=== PATIENT | female | born 1975 | race American Indian/Alaskan Native ===

== ENCOUNTER 2021-02-03 21:44 | Emergency (ER) | payer SELFPAY ==
[2021-02-03 23:42] LABS: Basophils % (Auto) 0.6 % (0.0-1.8); Eosinophils # (Auto) 0.3 K/mm3 (0.0-0.4); Eosinophils % (Auto) 3.2 % (0.0-4.3); Hematocrit 43.6 % (30.3-42.9); Hemoglobin 14.1 gm/dl (10.1-14.3); Lymphocytes # (Auto) 1.2 K/mm3 (1.2-5.4); Lymphocytes % (Auto) 14.5 % (13.4-35.0); Mean Corpuscular HGB Conc 32 % (30-34); Mean Corpuscular Volume 82 fl (79-97); Monocytes # (Auto) 0.5 K/mm3 (0.0-0.8); Monocytes % (Auto) 6.2 % (0.0-7.3); Platelet Count 234 K/mm3 (140-440); Red Blood Count 5.34 M/mm3 (3.65-5.03); Red Cell Distribution Width 12.9 % (13.2-15.2)
[2021-02-03 23:54] LABS: Alanine Aminotransferase 24 units/L (7-56); Blood Urea Nitrogen 6 mg/dL (7-17); Calcium 9.4 mg/dL (8.4-10.2); Hemolysis Index 6
[2021-02-04 00:03] LABS: BUN/Creatinine Ratio 9
[2021-02-04] MEDS ORDERED: SODIUM CHLORIDE 0.9% 1000 ML 1,000 ML IV ONE ×2 (00:11→00:38)
[2021-02-04] MEDS ORDERED: INSULIN REGULAR, HUMAN 100 UNITS/1 ML IV ONE (00:38)
--- NOTE | 2021-02-04 02:22 | Emergency Department Report ---
ED N/V/D HPI - General Chief complaint: Nausea/Vomiting/Diarrhea Stated complaint: UNCONTROLABLE BOWELS Source: patient Mode of arrival: Ambulatory Limitations: No Limitations - History of Present Illness Initial comments: Patient is a 45-year-old -[place] female with no past medical history presents to the ED with complaint of acute onset persistent diarrhea intermitte ntly for the last 1 week, worse in the last 2 days. Patient states that her symptoms are persistent and worse, and that she has had multiple episodes of diarrhea all day. Patient states that no one else at home is had similar symptoms. Patient denies chest pain, shortness of breath, headache, dizziness, syncope, cough, sore throat, abdominal pain, dysuria, urinary frequency and urgency, vaginal bleeding, vaginal discharge, nausea and vomiting, hematochezia or change in vision and headache. MD complaint: diarrhea -: Sudden, week(s) (1) Description of Diarrhea: water Associated Abdominal Pain: No Location: diffuse Radiation: none Severity: moderate Pain Scale: 0 Quality: dull Consistency: intermittent Improves with: none Worsens with: eating Context: possible food poisoning Associated Symptoms: denies other symptoms, loss of appetite, malaise. denies: myalgias, chest pain, cough, diaphoresis, fever/chills, headaches, nausea/vomiting, rash, dysuria, shortness of breath, syncope, weakness, other - Related Data Previous Rx's Medication Instructions Recorded Last Taken Type Lisinopril/Hydrochlorothiazide 1 each PO DAILY #30 tablet 02/04/21 Unknown Rx [Zestoretic 20-12.5 mg] Ondansetron [Zofran Odt] 4 mg PO Q8HR PRN #20 tab.rapdis 02/04/21 Unknown Rx metFORMIN [Glucophage] 500 mg PO Q12H #60 tablet 02/04/21 Unknown Rx Allergies Allergy/AdvReac Type Severity Reaction Status Date / Time No Known Allergies Allergy Unverified 02/03/21 23:08 ED Review of Systems ROS: Stated complaint: UNCONTROLABLE BOWELS Other details as noted in HPI Constitutional: denies: chills, fever Eyes: denies: eye pain, eye discharge, vision change ENT: denies: ear pain, throat pain Respiratory: denies: cough, shortness of breath, wheezing Cardiovascular: denies: chest pain, palpitations Endocrine: no symptoms reported Gastrointestinal: diarrhea. denies: abdominal pain, nausea, vomiting Genitourinary: denies: urgency, dysuria, discharge Musculoskeletal: denies: back pain, joint swelling, arthralgia Skin: denies: rash, lesions Neurological: denies: headache, weakness, paresthesias Psychiatric: denies: anxiety, depression Hematological/Lymphatic: denies: easy bleeding, easy bruising ED Past Medical Hx - Past Medical History Previous Medical History?: No - Surgical History Past Surgical History?: No - Medications Home Medications: Home Medications Medication Instructions Recorded Confirmed Last Taken Type Lisinopril/Hydrochlorothiazide 1 each PO DAILY #30 tablet 02/04/21 Unknown Rx [Zestoretic 20-12.5 mg] Ondansetron [Zofran Odt] 4 mg PO Q8HR PRN #20 tab.rapdis 02/04/21 Unknown Rx metFORMIN [Glucophage] 500 mg PO Q12H #60 tablet 02/04/21 Unknown Rx ED Physical Exam - General Limitations: No Limitations General appearance: alert, in no apparent distress - Head Head exam: Present: atraumatic, normocephalic, normal inspection - Eye Eye exam: Present: normal appearance, PERRL, EOMI Pupils: Present: normal accommodation - ENT ENT exam: Present: normal exam, normal orophraynx, mucous membranes moist, TM's normal bilaterally, normal external ear exam - Neck Neck exam: Present: normal inspection, full ROM - Respiratory Respiratory exam: Present: normal lung sounds bilaterally. Absent: respiratory distress, wheezes, rales, rhonchi, chest wall tenderness, accessory muscle use, prolonged expiratory - Cardiovascular Cardiovascular Exam: Present: regular rate, normal rhythm, normal heart sounds. Absent: systolic murmur, diastolic murmur, rubs, gallop - GI/Abdominal GI/Abdominal exam: Present: soft, normal bowel sounds. Absent: tenderness, guarding, rebound, hyperactive bowel sounds, hypoactive bowel sounds, organomegaly - Extremities Exam Extremities exam: Present: normal inspection, full ROM, normal capillary refill - Back Exam Back exam: Present: normal inspection, full ROM. Absent: tenderness, CVA tenderness (R), CVA tenderness (L), muscle spasm, paraspinal tenderness, vertebral tenderness - Neurological Exam Neurological exam: Present: alert, oriented X3, CN II-XII intact, normal gait, reflexes normal - Psychiatric Psychiatric exam: Present: normal affect, normal mood - Skin Skin exam: Present: warm, dry, intact, normal color. Absent: rash ED Course Vital Signs 02/03/21 02/04/21 02/04/21 23:09 02:28 04:08 Temperature 98.4 F 98.2 F Pulse Rate 87 67 80 Respiratory 18 16 Rate Blood Pressure 177/97 183/108 Blood Pressure 218/96 [Left] O2 Sat by Pulse 98 100 Oximetry 02/04/21 02/04/21 04:10 05:42 Temperature 98.2 F 98.3 F Pulse Rate 80 83 Respiratory 19 16 Rate Blood Pressure Blood Pressure 183/108 181/97 [Left] O2 Sat by Pulse 100 100 Oximetry ED Medical Decision Making - Lab Data Result diagrams: 02/03/21 23:17 02/03/21 23:17 - Medical Decision Making This is a 45-year-old -[place] female with no past medical history presents to the ED with complaint of acute onset persistent diarrhea intermittently for the last 1 week, worse in the last 2 days. Patient states that her symptoms are persistent and worse, and that she has had multiple episodes of diarrhea all day. Patient states that no one else at home is had similar symptoms. In the ED, patient is alert and oriented x3 and is not in any distress but hypertensive in triage but patient is asymptomatic despite severely elevated blood pressure. Lab test results were reviewed and showed significant acute hyperglycemia of 586 mg/dL, acute hyponatremia of 130 mmol/L, hypochloremia of 90 mmol/L and slight elevated lipase level of 69 with hemoglobin A1c of 14.9%. Patient was treated in the ED with 2 L of normal saline IV bolus and insulin 10 units IV x1. Patient also received hydralazine 10 mg IV x1. On reevaluation, patient's final [id number] glucose was 158 mg/dL. Patient blood pressure was still significantly elevated but patient is asymptomatic with no chest pain, headache, dizziness, shortness of breath, diaphoresis, syncope or palpitations. These results were discussed with the patient. Patient was given option for lifestyle changes to control her blood pressure and diabetes or given prescription for both diabetes and hypertension. The risks and side effects of these medications were also discussed with the patient who verbalized understanding. Patient however requested to be given prescriptions for diabetes and hypertension, and promised to also observe lifestyle changes and to follow-up with her primary care physician for further evaluation in 3 to 5 days. Patient was therefore discharged home on medications and advised follow-up with her primary care physician in 3 to 5 days for reevaluation, and also return to the ED immediately if symptoms get worse. - Differential Diagnosis Gastroenteritis; dehydration; hyperglycemia; uncontrolled hypertension Critical care attestation.: If time is entered above; I have spent that time in minutes in the direct care of this critically ill patient, excluding procedure time. ED Disposition Clinical Impression: Diarrhea in adult patient, New onset type 2 diabetes mellitus, Acute hyponatremia, Uncontrolled stage 2 hypertension Hyperglycemia due to type 2 diabetes mellitus Qualifiers: Diabetes mellitus ad terminal makeup operator insulin use: without mcc use Qualified Code (s): E11.65 - Type 2 diabetes mellitus with hyperglycemia Disposition: - TO HOME OR SELFCARE Is pt being admited?: No Does the pt Need Aspirin: No Condition: Stable Instructions: Type 2 Diabetes Mellitus, Self Care, Adult, [id number], Hypertension, Adult, [id number], Type 2 Diabetes Mellitus, Diagnosis, Adult, [id number], Diarrhea, Adult, [id number], Diabetes Mellitus Type 2 in Adults (ED), Hypertension (ED) Additional Instructions: All lab test results were reviewed and showed acute hyponatremia and acute hyperglycemia. It shows that you have type 2 diabetes which is poorly controlled. Your vital signs also showed that your blood pressure is poorly controlled. The best way to control your diabetes and hypertension is lifestyle changes which includes weight loss and observing your diet . You can incorporate both to control blood pressure and diabetes. You have opted to take medications in addition to practicing lifestyle changes. Therefore take medications, drink plenty of fluids and ensure that you follow-up with your primary care physician in 3 to 5 days for reevaluation. Return to the ED immediately if your symptoms get worse. Prescriptions: metFORMIN [Glucophage] 500 mg PO Q12H #60 tablet Lisinopril/Hydrochlorothiazide [Zestoretic 20-12.5 mg] 1 each PO DAILY #30 tab let Ondansetron [Zofran Odt] 4 mg PO Q8HR PRN #20 tab.rapdis PRN Reason: Nausea Referrals: [facility] [Provider Group] - 3-5 Days [facility] [Outside] - 3-5 Days Forms: Work/School Release Form(ED) Time of Disposition: 05:37 Print Language: MICRONESIAN
[2021-02-04] MEDS ORDERED: hydrALAZINE 20 MG/1 ML INJ IV ONE ×2 (03:55→03:56)
[2021-02-04 04:03] LABS: Bilirubin,Urine NEG (Negative); Blood,Urine NEG (Negative); Color,Urine Straw (Yellow); Protein,Urine <15 mg/dL mg/dL (Negative); Urobilinogen,Urine < 2.0 mg/dL (<2.0)
[2021-02-04 05:43] VITALS: BP 181/97
== END 2021-02-04 06:31 | disposition home or self-care (01) ==
LOC: ED 21:44
DX: E11.65 Type 2 diabetes mellitus with hyperglycemia (principal); I10 Essential (primary) hypertension; E87.1 Hypo-osmolality and hyponatremia; Z79.899 Other long term (current) drug therapy
CPT/HCPCS: 36415; 80053; 81001; 82962; 83036; 83690; 84703; 85025; 96361; 96374; 96375; 99283; J0360; J7030; J1815

== ENCOUNTER 2021-12-01 00:15 | Emergency (ER) | payer SELFPAY ==
[2021-12-01 03:17] VITALS: BP 175/96
== END 2021-12-01 07:01 | disposition home or self-care (01) ==
LOC: ED 00:15
DX: H92.02 Otalgia, left ear (principal)
CPT/HCPCS: 99282